=== PATIENT | female | born 1995 | race Caucasian/White ===

== ENCOUNTER 2017-07-30 10:58 | Emergency (ER) | payer BC ==
[2017-07-30 11:03] VITALS: BP 114/71; PULSE 103; RESP 20; TEMP 98
[2017-07-30] MEDS ORDERED: LIDOCAINE VISCOUS 2% 15 ML CUP MUCOUS MEM ONE (11:32)
--- NOTE | 2017-07-30 11:35 | ED ---
General Adult HPI - General Chief complaint: Dental/Oral Stated complaint: Mouth pain Time Seen by Provider: 07/30/17 11:00 Source: patient, RN notes reviewed Mode of arrival: ambulatory Limitations: no limitations - History of Present Illness Initial comments: This is a 21-year-old female who presents emergency department because she has sores in her mouth since Tuesday. Patient states she had some dental work done on the previous Tuesday and then on Tuesday she had sores on her tongue and cheeks gums and lower lip. Patient states the burn when she eats or drinks anything and she has since followed up with the dentist. That does put her on steroids and an oral rinse it did not help the dentist and sensory to an oral surgeon and the pain and discomfort continue. Patient denies any fever chills. Patient denies any other symptoms. Patient denies rash on her hands or feet. Patient denies any cough. Patient does work in a daycare. - Related Data Home Medications Medication Instructions Recorded Confirmed Adapalene [Differin] 1 applic TOPICAL HS 07/30/17 07/30/17 Adapalene/Benzoyl Peroxide 1 applic TOPICAL QAM 07/30/17 07/30/17 [Adapalene-Bnzyl Perox 0.1-2.5%] Chlorhexidine Gluconate [Peridex] 5 ml PO BID 07/30/17 07/30/17 Dexamethasone [Decadron Intensol 5 ml PO 5XD 07/30/17 07/30/17 Oral Solution] Ibuprofen [Motrin] 600 mg PO Q8HR PRN 07/30/17 07/30/17 Lidocaine Viscous 2% [Xylocaine 2 ml PO BID 07/30/17 07/30/17 Viscous] Allergies Allergy/AdvReac Type Severity Reaction Status Date / Time No Known Allergies Allergy Verified 07/30/17 11:43 Review of Systems ROS Statement: Those systems with pertinent positive or pertinent negative responses have been documented in the HPI. ROS Other: All systems not noted in ROS Statement are negative. Past Medical History Past Medical History: No Reported History History of Any Multi-Drug Resistant Organisms: None Reported Past Surgical History: No Surgical Hx Reported Past Psychological History: No Psychological Hx Reported Smoking Status: Never smoker Past Alcohol Use History: Occasional Past Drug Use History: None Reported General Exam - General Exam Comments Initial Comments: GENERAL: Patient is well-developed and well-nourished. Patient is nontoxic and well- hydrated and is in mild distress. ENT: Neck is soft and supple. No significant lymphadenopathy is noted. Oropharynx is clear. There are lesions on the patient's tongue lip cheek and gums. EYES: The sclera were anicteric and conjunctiva were pink and moist. Extraocular movements were intact and pupils were equal round and reactive to light. Eyelids were unremarkable. SKIN: Skin is clear with no lesions or rashes and otherwise unremarkable. There are no lesions on the patient's hand or feet. NEUROLOGIC: Patient is alert and oriented x3. Cranial nerves II through XII are grossly intact. Motor and sensory are also intact. Normal speech, volume and content. Symmetrical smile. MUSCULOSKELETAL: Normal extremities with adequate strength and full range of motion. LYMPHATICS: No significant lymphadenopathy is noted PSYCHIATRIC: Normal psychiatric evaluation. Limitations: no limitations Course Vital Signs 07/30/17 11:01 Temperature 98 F Pulse Rate 103 H Respiratory 20 Rate Blood Pressure 114/71 O2 Sat by Pulse 100 Oximetry Medical Decision Making - Medical Decision Making Patient used viscous lidocaine and it improved her symptoms immediately. Disposition Clinical Impression: Oral herpes simplex infection Disposition: HOME SELF-CARE Condition: Good Instructions: Oral Herpes Simplex Virus Infections (ED) Additional Instructions: Please take Abreva and acyclovir as prescribed Referrals: Tess Chavez MD [Primary Care Provider] - 1-2 days Time of Disposition: 12:16
== END 2017-07-30 12:23 | disposition home or self-care (01) ==
LOC: EC 10:58
DX: B00.9 Herpesviral infection, unspecified (principal); Z79.899 Other long term (current) drug therapy
CPT/HCPCS: 99282